=== PATIENT | male | born 1945 | race Caucasian/White ===

== ENCOUNTER 2017-06-19 09:19 | Day surgery (SDC) | payer OTHER ==
[~2017-06-19] VITALS: Ht 182.9 cm; Wt 101.8 kg
[2017-06-19] MEDS ORDERED: ZANTAC 150MG T150 MG PO (09:37)
[2017-06-19] MEDS ORDERED: TOPROL XL 25MG25 MG PO (09:37)
[2017-06-19] MEDS ORDERED: PERCOCET 325 MG1 TA2 PO (09:38)
[2017-06-19] MEDS ORDERED: ZOCOR 20MG20 MG PO (09:39)
[2017-06-19 09:52] VITALS: BP 113/77; PULSE 84; TEMP 98.7
[2017-06-19 10:50] VITALS: BP 73/56; PULSE 71; TEMP 97.7
[2017-06-19 11:00] VITALS: BP 84/56; PULSE 74
[2017-06-19 11:15] VITALS: BP 113/95; PULSE 70
[2017-06-19 11:30] VITALS: BP 107/72; PULSE 70
[2017-06-19 12:13] VITALS: BP 76/49; PULSE 76
== END 2017-06-19 11:45 | disposition home or self-care (01) ==
LOC: SDCO 09:19
DX: Z12.11 Encounter for screening for malignant neoplasm of colon (principal); D12.3 Benign neoplasm of transverse colon; Z86.010 Personal history of colon polyps; K57.30 Diverticulosis of large intestine without perforation or abscess without bleeding; Z88.8 Allergy status to other drugs, medicaments and biological substances; Z79.82 Long term (current) use of aspirin; I10 Essential (primary) hypertension; E78.00 Pure hypercholesterolemia, unspecified; R01.1 Cardiac murmur, unspecified; M54.9 Dorsalgia, unspecified; Z79.891 Long term (current) use of opiate analgesic
CPT/HCPCS: J2250; J3010; J7030

== ENCOUNTER 2021-08-30 09:45 | Outpatient (CLI) | payer MEDICARE ==
[~2021-08-30] VITALS: Ht 183 cm; Wt 105.1 kg
[~2021-08-30 09:45] MED LIST: PERCOCET 325 MG1 TA2 PO; TOPROL XL 25MG25 MG PO; ZANTAC 150MG T150 MG PO; ZOCOR 20MG20 MG PO
[2021-08-30 10:29] VITALS: BP 141/78; PULSE 64; TEMP 97.5
[2021-08-30] MEDS ORDERED: ASPIRIN E.C. 8181 MG PO (10:33)
[2021-08-30] MEDS ORDERED: LIPITOR 40MG TA40 MG PO (10:33)
[2021-08-30] MEDS ORDERED: FOLIC ACID 11 MG/TA1 PO (10:34)
[2021-08-30] MEDS ORDERED: LASIX 20MG TABL20 MG PO (10:35)
[2021-08-30] MEDS ORDERED: KLOR-CON M2020 MEQ PO (10:35)
[2021-08-30] MEDS ORDERED: ANTIVERT 25MG25 MG PO (10:36)
[2021-08-30] MEDS ORDERED: LOPRESSOR 225 MG/TAB PO (10:37)
[2021-08-30] MEDS ORDERED: XYOSTED100 MG/0.5 SQ (10:38)
[2021-08-30] MEDS ORDERED: NATURE'S BLEND100 M2 PO (10:39)
[2021-08-30] MEDS ORDERED: VITAMIN B12 1541 TAB PO (10:39)
[2021-08-30] MEDS ORDERED: VITAMIND3 5000 PO (10:40)
--- NOTE | 2021-08-30 11:40 | NUR ---
PATIENT RETURNED FROM TILT TABLE VIA W/C, TESTS WAS NEGATIVE, PT HAVING NO C/O DIZZINESS. VSS 139/82, PULSE 64, RR AT 16, DR PEREYRA INTO SEE PT AND DISCUSS PROCEDURE RESULTS, IV D'CD INTACT. PT UP IN ROOM DRESSED
--- NOTE | 2021-08-30 12:20 | NUR ---
REVIEWED DISCHARGE INST. WITH PT ON PRECAUTIONS AND FOLLOWUP, PT DISCHARGED VIA W/C TO CAR WITH
== END 2021-08-30 12:28 | disposition home or self-care (01) ==
LOC: COL.CAR 09:45
DX: R42 Dizziness and giddiness (principal); E78.5 Hyperlipidemia, unspecified; I35.0 Nonrheumatic aortic (valve) stenosis; I10 Essential (primary) hypertension; I25.10 Atherosclerotic heart disease of native coronary artery without angina pectoris; I65.23 Occlusion and stenosis of bilateral carotid arteries; K21.9 Gastro-esophageal reflux disease without esophagitis; M47.9 Spondylosis, unspecified; Z79.899 Other long term (current) drug therapy; Z87.891 Personal history of nicotine dependence

== ENCOUNTER 2021-11-01 09:48 | Day surgery (SDC) | payer MEDICARE, OTHER ==
[2021-11-01] VITALS (8 sets, daily range): BP systolic 132–165; BP diastolic 50–91; PULSE 87–94; TEMP 98.1–98.5
[~2021-11-01] VITALS: Ht 182.9 cm; Wt 102.7 kg
[~2021-11-01 09:48] MED LIST changes: +ANTIVERT 25MG25 MG PO; +ASPIRIN E.C. 8181 MG PO; +FOLIC ACID 11 MG/TA1 PO; +KLOR-CON M2020 MEQ PO; +LASIX 20MG TABL20 MG PO; +LIPITOR 40MG TA40 MG PO; +LOPRESSOR 225 MG/TAB PO; +NATURE'S BLEND100 M2 PO; +VITAMIN B12 1541 TAB PO; +VITAMIND3 5000 PO; +XYOSTED100 MG/0.5 SQ
[2021-11-01 10:48] LABS: BASO % 0.8 % (0.0-2.0); EOS # 0.1 K/mm3 (0.0-0.7); EOS % 1.9 % (0.0-4.0); GRAN # 2.2 K/mm3 (1.4-6.5); GRAN % 47.4 % (42.2-75.2); HEMATOCRIT 39.9 % (42.0-52.0); HEMOGLOBIN 14.8 g/dl (13.5-18.0); LYMPH # 1.9 K/mm3 (1.2-3.4); LYMPH % 39.3 % (20.0-51.0); MEAN CELL VOLUME 98 fl (80.0-100.0); MEAN CORPUSCULAR HEMOGLOBIN 37 pg (27-31); MEAN CORPUSCULAR HGB CONC 37 g/dl (33.0-37.0); MEAN PLATELET VOLUME 10.5 fl (7.4-10.4); MONO # 0.5 K/mm3 (0.1-0.6); MONO % 10.4 % (1.7-9.3); PLATELET COUNT 166 K/mm3 (130-400); RED BLOOD COUNT 4.06 M/mm3 (4.20-5.60); REDCELL DISTRIBUTION WIDTH-CV 12.2 % (11.5-14.5)
[2021-11-01 10:59] LABS: INR 1.1 (0.8-3.0); PROTHROMBIN TIME 12.5 SECONDS (9.7-12.8)
[2021-11-01] MEDS ORDERED: XYOSTED100 MG/0.5 SQ (10:59)
[2021-11-01] MEDS ORDERED: VITAMIN B-6100 MG PO (11:03)
[2021-11-01] MEDS ORDERED: ZANTAC-360 (FAM20 MG PO (11:05)
[2021-11-01 11:09] LABS: CALCIUM 9.5 mg/dL (8.4-10.2); CREATININE, serum 0.9 mg/dL (0.72-1.25); POTASSIUM 3.4 mmol/L (3.5-4.5)
--- NOTE | 2021-11-01 12:38 | NUR ---
PATIENT ALERT AND ORIENTED. IV SITE FLUSHES, BUT PATIENT REPORTS DISCOMFORT. NEW IV LAC STARTED AND FLUSHED WITH NO DIFFICULTY. PATIENT VERBALIZES UNDERSTANDING PROCEDURE. FAMILY IN WAITING ROOM. 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 NO REPORTS OF PAIN OR DISCOMFORT. CONSENT VERIFIED.
--- NOTE | 2021-11-01 15:11 | NUR ---
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 ASSESSMENT COMPLETED, VITALS INITIATED.
--- NOTE | 2021-11-01 19:15 | NUR ---
PATIENT RESTING COMFORTABLY IN BED. VITALS STABLE POST PRECEDURE. NO SIGNIFICANT EVENTS, NO COMPLAINTS OF PAIN. PACER SITE STABLE.
--- NOTE | 2021-11-02 00:04 | NUR ---
Pt alert and oriented x4 this evening. Resting in bed. Left arm is in sling with ice pack on pacemaker site. Changed out ice pack x2 so far. Pacemaker site is covered with gauze dressing and tape. Dressing is clean/dry/intact. Pacemaker site is non-edematous. No drainage, bruising, bleeding noted. Pt reports mild pain at the site, but refused pain medication at this time. Vital signs stable. Pt is paced, NSR, HR in 70's. Pt denies chest pain or SOB. Shift assessment performed. Medications administered per orders and education provided. Pt reports no questions at this time. Will continue to monitor.
[2021-11-02 00:13] VITALS: BP 140/75; PULSE 77; TEMP 98.2
[2021-11-02 04:00] VITALS: BP 126/75; PULSE 73; TEMP 97.9
--- NOTE | 2021-11-02 04:58 | NUR ---
Pt had an unevenful night. Reported difficulty sleeping, so administered prn Restoril as ordered. Alert and oriented, resting now. Pt denies pain. Pacemaker site appears non-edematous, no errythema/bruising/drainage. Gauze dressing is clean/dry/intact. Vital signs remain stable. Pt remains paced, NSR, HR in 70's. Pt did not report any chest pain overnight. Tolerated PO pills well. Will do device download for pacemaker this morning. Pt reports no questions, will continue to monitor.
[2021-11-02 05:51] LABS: BASO % 0.5 % (0.0-2.0); EOS # 0.1 K/mm3 (0.0-0.7); EOS % 1.6 % (0.0-4.0); GRAN # 3.5 K/mm3 (1.4-6.5); GRAN % 55.1 % (42.2-75.2); HEMOGLOBIN 13.4 g/dl (13.5-18.0); LYMPH # 2.1 K/mm3 (1.2-3.4); LYMPH % 32.9 % (20.0-51.0); MEAN CELL VOLUME 100 fl (80.0-100.0); MEAN CORPUSCULAR HEMOGLOBIN 36 pg (27-31); MEAN CORPUSCULAR HGB CONC 36 g/dl (33.0-37.0); MONO # 0.6 K/mm3 (0.1-0.6); MONO % 9.7 % (1.7-9.3); PLATELET COUNT 143 K/mm3 (130-400); RED BLOOD COUNT 3.69 M/mm3 (4.20-5.60); REDCELL DISTRIBUTION WIDTH-CV 12.3 % (11.5-14.5)
[2021-11-02 05:53] LABS: HEMATOCRIT 36.9 % (42.0-52.0)
[2021-11-02 06:06] LABS: CALCIUM 8.4 mg/dL (8.4-10.2); CREATININE, serum 0.92 mg/dL (0.72-1.25); POTASSIUM 3.4 mmol/L (3.5-4.5)
[2021-11-02 08:11] VITALS: BP 146/83; PULSE 73; TEMP 98.3
--- NOTE | 2021-11-02 08:20 | NUR ---
PT PLEASANT, AOX4, DENIES PAIN AT PACER SITE, ICE PACK PROVIDED AND APPLIED TO SITE. SITE DRESSED WITH GAUZE AND PAPER TAPE. PACER DOWNLOAD COMPLETED BY MARBLE RUBBER RN. XRAY COMPLETED, MEDICATIONS GIVEN, METOPROLOL HELD DUE TO PT STATING HE NO LONGER TAKES IT. ASSESSMENT PERFORMED, NO OTHER NEEDS
--- NOTE | 2021-11-02 11:08 | NUR ---
America STEWART requests Front Office Java Developer follow up as patient reports having received divorce papers on Thursday and is currently living in a hotel: This Front Office Java Developer met with patient for intake assessment and discharge planning. Patient "Imtiaz" is alert and oriented and agreeable to speak, pleasant mood/affect. He states he lives in [place] and is now staying a [employer], room 15, after he "unexpectedly" received divorce paperwork, "It threw me for a curve ball." He states he has already secured legal document specialist, and he is not concerned about a long-term housing plan. He receives a telephone call from his eldest son Artemio Ventura [phone], who is supportive and actively involved in his care. Patient informs he does not have a DPOA-HC or living will, and he is interested in learning more. He receives education offered and DPOA-HC paperwork for his review; he does not wish to complete at this time. He informs he is independent in ADLs/IADLs and he does not currently utilize any DME and/or home oxygen. He informs of no concern for any DME or home oxygen or CPAP following this hospitalization, at this time. He has no issues in obtaining/paying for his medications, which he typically receives through [facility] [place] or [facility], in [facility]. [facility] and he sees Dr[facility] Allen Bazzi in [place] if he needs a more urgent appointment. He has healthcare coverage and supplemental plan, and [facility] services. Patient plans to discharge to home/motel at time of discharge and his son is available for his support. *Discharge plan: To home/motel with adult son's support*
[2021-11-02] MEDS ORDERED: CEPHALEXIN500 M1 PO (11:26)
[2021-11-02] MEDS ORDERED: TOPROL XL 25MG25 MG PO (11:26)
[2021-11-02 11:33] VITALS: BP 122/69; PULSE 78; TEMP 98.2
--- NOTE | 2021-11-02 12:18 | NUR ---
DISCHARGE EDUCATION PROVIDED, PT EATING LUNCH, NO OTHER NEEDS
--- NOTE | 2021-11-02 13:20 | NUR ---
PT IV REMOVED, TELE REMOVED, ESCORTED OUT WITH PT BELONGINGS, NO OTHER NEEDS
== END 2021-11-02 13:21 | disposition home or self-care (01) ==
LOC: COL.CAR 09:48 → MEDICAL 09:48 → COL.CAR 10:00 → MEDICAL 13:40 → COL.CAR 11-02 13:21
PROVIDERS: Internal Medicine Cardiovascular Disease
DX: I49.5 Sick sinus syndrome (principal); I34.0 Nonrheumatic mitral (valve) insufficiency; I47.2 Ventricular tachycardia; I35.0 Nonrheumatic aortic (valve) stenosis; I10 Essential (primary) hypertension; I65.23 Occlusion and stenosis of bilateral carotid arteries; E78.5 Hyperlipidemia, unspecified; Z95.2 Presence of prosthetic heart valve; Z87.891 Personal history of nicotine dependence; Z79.899 Other long term (current) drug therapy; Z79.82 Long term (current) use of aspirin
CPT/HCPCS: OP; C1785; C1894; C1898; J0690; J2250; J3010; Q9967